=== PATIENT | male | born 1985 | race Caucasian/White ===

== ENCOUNTER → 2018-02-14 | Outpatient (CLI) | payer OTHER ==
[~2018-02-14] MED LIST: ANTIBIOTIC; CEPH500 PO; ESCI20; HYDACE5 PO; IBUP800; INSLE100IA; INSUASPI; Zofran Odt4 MG SL; [UNRECOGNIZED DRUG - REMARK]
[2018-02-17 02:14] LABS: CHLAMYDIA TRACHOMATIS, NAA Positive (Negative); NEISSERIA GONORRHOEAE, NAA Negative (Negative)
== END | disposition home or self-care (01) ==
LOC: LAB EV 13:01 → LAB SHORT 13:01
PROVIDERS: Physician Assistant Surgical
DX: N45.1 Epididymitis (principal)
CPT/HCPCS: 87491; 87591